=== PATIENT | female | born 1955 | race Caucasian/White ===

== ENCOUNTER → 2016-08-31 | Outpatient (CLI) | payer OTHER ==
[~2016-08-31] MED LIST: ACYCLOVIR 400400 MG PO; CELLCEPT 250 M250 MG PO; NAPROSYN500 MG PO; PREDNISONE 10 M10 MG PO
== END ==
LOC: RAD 15:56
DX: R07.81 Pleurodynia (principal)

== ENCOUNTER → 2016-09-12 | Outpatient (CLI) | payer OTHER | LOC: RAD 13:03 | DX: R92.2 Inconclusive mammogram (principal) ==

== ENCOUNTER 2017-04-08 01:41 | Emergency (ER) | payer OTHER ==
[~2017-04-08] VITALS: Ht 165.1 cm; Wt 79.4 kg
[~2017-04-08 01:41] MED LIST changes: +CELLCEPT500 MG PO; +CLONAZEPAM 0.50.5 M1 PO; +PREDNISONE 5 MG5 M1 PO; +URSODIOL250 MG PO
[2017-04-08 02:09] LABS: ABSOLUTE NEUTROPHILS 3.9 thou/uL (1.4-8.2); BASOPHILS 0.5 % (0.0-2.0); EOSINOPHILS 0.3 % (0.0-3.0); HEMATOCRIT 44.4 % (37.0-47.0); HEMOGLOBIN 14.7 gm/dL (12.0-15.0); LYMPHOCYTES 10.1 % (24.0-44.0); MCH 28.6 pg (26.0-34.0); MCHC 33.2 g/dL (28.0-37.0); MCV 86.3 fL (80.0-100.0); MONOCYTES 11.1 % (1.0-8.0); PLATELET COUNT 122 thou/uL (150-400); RBC 5.14 mil/uL (4.20-5.00); RDW 16.5 % (10.5-14.5)
[2017-04-08 02:11] LABS: CALCIUM 8.7 mg/dL (8.5-10.1); POTASSIUM 3.4 mmol/L (3.5-5.1)
[2017-04-08 02:17] LABS: ALBUMIN 3.6 g/dL (3.4-5.0); TOTAL BILIRUBIN 1.8 mg/dL (<0.1-1.0); TOTAL PROTEIN 7.4 g/dL (6.4-8.2)
[2017-04-08 04:47] LABS: URINE BILIRUBIN 1+ (Negative); URINE BLOOD 1+ (Negative); URINE CLARITY CLEAR; URINE COLOR YELLOW; URINE GLUCOSE-RANDOM* NEGATIVE (Negative); URINE KETONES 1+ (Negative); URINE NITRITE-REFLEX NEGATIVE (Negative); URINE PROTEIN (DIPSTICK) NEGATIVE (Negative)
[2017-04-08 04:48] LABS: URINE LEUKOCYTES-REFLEX 1+ (Negative)
[2017-04-08 04:53] LABS: ICTOTEST (BILI CONFIRMATORY) Positive (Negative)
[2017-04-08 05:08] LABS: CASTS None Seen /LPF (None Seen); MUCUS 0-3 Light strn/LPF (None Seen); SQUAMOUS None Seen /LPF (0-3); URINE RBC 3-10 Few /HPF (0-2)
[2017-04-08 05:09] LABS: BACTERIA-REFLEX 1-9 Few /HPF (None Seen); CRYSTALS None Seen /LPF (None Seen)
[2017-04-08] MEDS ORDERED: ZOFRAN ODT4 MG PO (05:16)
== END 2017-04-08 06:00 | disposition home or self-care (01) ==
LOC: ER 01:41
PROVIDERS: Emergency Medicine
DX: K52.9 Noninfective gastroenteritis and colitis, unspecified (principal); Z90.49 Acquired absence of other specified parts of digestive tract; Z88.1 Allergy status to other antibiotic agents

== ENCOUNTER 2017-07-13 12:53 | Emergency (ER) | payer OTHER ==
[~2017-07-13] VITALS: Ht 165.1 cm; Wt 79.8 kg
[~2017-07-13 12:53] MED LIST changes: +ZOFRAN ODT4 MG PO
[2017-07-13] MEDS ORDERED: HYDROCODONE-IB1 EAC3 PO (14:27)
[2017-07-13 14:30] VITALS: BP 138/64
== END 2017-07-13 14:32 | disposition home or self-care (01) ==
LOC: ER 12:53
DX: S86.912A Strain of unspecified muscle(s) and tendon(s) at lower leg level, left leg, initial encounter (principal); F32.9 Major depressive disorder, single episode, unspecified; M79.7 Fibromyalgia; M19.90 Unspecified osteoarthritis, unspecified site; Z90.49 Acquired absence of other specified parts of digestive tract; Z88.1 Allergy status to other antibiotic agents; X58.XXXA Exposure to other specified factors, initial encounter; Y93.89 Activity, other specified; Y92.89 Other specified places as the place of occurrence of the external cause; Y99.8 Other external cause status

== ENCOUNTER → 2017-12-30 | Outpatient (CLI) | payer OTHER ==
[~2017-12-30] MED LIST changes: +HYDROCODONE-IB1 EAC3 PO
--- NOTE | ~2017-12-30 | SLE ---
[facility] [place] [address] POLYSOMNOGRAPHY STUDY Name: ARNIE MAO Room #: REG [facility].#: [id number] Admission: 12/30/17 Attend Phys: Kirby Garner MD Discharge: Date of : 55 Report #: [id number] THIS REPORT FOR: //name// CC: Kirby Jose MD DATE OF SERVICE: 12/30/2017 SLEEP STUDY ATTENDING PHYSICIAN: Dr. Flakito Jose. The patient is a 62-year-old who weighs 170 pounds and 65 inches tall and has a BMI of 28.3. The patient's [place] score was 14 out of a maximum of 24. Review of medications also revealed use of benzodiazepines and narcotics. Sleep study was performed to rule out ERNST. This was a diagnostic study. During the night study, the patient spent 451 minutes in bed and slept for 290 minutes with a low sleep efficiency of 64%. Sleep latency was prolonged at 64 minutes with a REM latency of 292 minutes. Overall, sleep architecture showed normal stage 1 sleep, increased stage 2 sleep, significantly reduced N3 sleep and reduced REM sleep, which was 11.6% of the total sleep time and representing 33.5 minutes. During the night study, the patient had total of 6 apneas, 3 obstructive and 3 central and 10 hypopneas. The patient's apnea-hypopnea index for the entire night was only 3.3 per hour with a REM index of 16 per hour and a supine index of 5.3 per hour. EKG monitoring revealed an average heart rate of 60 beats per minute with a maximum of 79 beats per minute. No sustained arrhythmias were observed. No clinically significant PLMS observed. The PLM index was only 3.1 per hour. Nocturnal oximetry study revealed an average oxygen saturation of 95% with a lowest of 85%. Only 0.3 minutes were spent in oxygen saturation of less than 89%. Due to low AHI, the patient did not meet the split night criteria for CPAP initiation. IMPRESSION: 1. Overall, no clinically significant sleep disordered breathing. The patient's AHI for the entire night was 3.3 per hour. The patient did have mild REM related events with a REM AHI of 16 per hour. [facility] [address] [place] [address] POLYSOMNOGRAPHY STUDY Name: ARNIE MAO Room #: REG [facility].#: [id number] Admission: 12/30/17 Attend Phys: Kirby Garner MD Discharge: Date of : 55 Report #: [id number] 2. No clinically significant nocturnal hypoxia. 3. No clinically significant periodic limb movements during sleep. 4. Reduced sleep efficiency resulting from sleep onset and sleep maintenance insomnia. RECOMMENDATIONS: 1. The patient did not meet the split night criteria for CPAP initiation due to low AHI. 2. The patient's subjective hypersomnia could be the effect of medications. Patient is on chronic benzodiazepines and narcotics. 3. The patient also had a reduced sleep efficiency resulting from sleep onset and sleep maintenance insomnia. This can also contribute to the patient's symptoms. 3. Avoid CIGARETTE TIPPER depressants. 4. Weight loss is strongly advised. 5. Cautioned regarding driving until patient's subjective hypersomnia is resolved. <ELECTRONICALLY SIGNED> By: Kirby Garner MD 12/31/17 1854 [id number] 1730 Kirby Garner MD /nt
== END ==
LOC: SLEEPLAB 16:48
DX: G47.19 Other hypersomnia (principal); R53.82 Chronic fatigue, unspecified; G47.33 Obstructive sleep apnea (adult) (pediatric)

== ENCOUNTER 2018-03-12 19:03 | Emergency (ER) | payer OTHER ==
[~2018-03-12] VITALS: Ht 165.1 cm; Wt 79.4 kg
[2018-03-12] MEDS ORDERED: VALACYCLOVIR1000 MG (19:27)
[2018-03-12 20:31] LABS: ABSOLUTE NEUTROPHILS 5.4 thou/uL (1.4-8.2); BASOPHILS 0.7 % (0.0-2.0); EOSINOPHILS 0.4 % (0.0-3.0); HEMOGLOBIN 14.9 gm/dL (12.0-15.0); LYMPHOCYTES 5.7 % (24.0-44.0); MCV 87.9 fL (80.0-100.0); MONOCYTES 6.1 % (1.0-8.0); PLATELET COUNT 137 thou/uL (150-400); POLYS 87.1 % (36.0-66.0); RBC 5.13 mil/uL (4.20-5.00); RDW 16.4 % (10.5-14.5); WBC 6.2 thou/uL (4.0-11.0)
[2018-03-12 20:39] LABS: CALCIUM 8.7 mg/dL (8.5-10.1); CREATININE 0.8 mg/dL (0.6-1.0); POTASSIUM 3.7 mmol/L (3.5-5.1)
[2018-03-12 20:46] LABS: ALBUMIN 3.8 g/dL (3.4-5.0); TOTAL BILIRUBIN 1.3 mg/dL (<0.1-1.0); TOTAL PROTEIN 8.1 g/dL (6.4-8.2)
[2018-03-12] MEDS ORDERED: ZOFRAN 4 MG ORAL4 MG PO (21:50)
[2018-03-12] MEDS ORDERED: TAMIFLU75 MG PO (21:50)
[2018-03-12 22:14] VITALS: BP 122/54
== END 2018-03-12 22:15 | disposition home or self-care (01) ==
LOC: ER 19:03
PROVIDERS: Emergency Medicine
DX: J11.1 Influenza due to unidentified influenza virus with other respiratory manifestations (principal); K75.4 Autoimmune hepatitis; F32.9 Major depressive disorder, single episode, unspecified; M79.7 Fibromyalgia; M19.90 Unspecified osteoarthritis, unspecified site; R11.2 Nausea with vomiting, unspecified; Z90.49 Acquired absence of other specified parts of digestive tract; Z88.1 Allergy status to other antibiotic agents; Z88.8 Allergy status to other drugs, medicaments and biological substances

== ENCOUNTER → 2018-06-13 | Outpatient (CLI) | payer OTHER ==
[~2018-06-13] MED LIST changes: +TAMIFLU75 MG PO; +VALACYCLOVIR1000 MG; +ZOFRAN 4 MG ORAL4 MG PO
== END ==
LOC: RAD 15:41
DX: M48.07 Spinal stenosis, lumbosacral region (principal); I70.0 Atherosclerosis of aorta; G89.29 Other chronic pain

== ENCOUNTER → 2018-06-19 | Outpatient (CLI) | payer OTHER | LOC: MRI 10:47 | DX: M48.56XA Collapsed vertebra, not elsewhere classified, lumbar region, initial encounter for fracture (principal); M51.16 Intervertebral disc disorders with radiculopathy, lumbar region; M48.061 Spinal stenosis, lumbar region without neurogenic claudication; R60.0 Localized edema ==

== ENCOUNTER → 2019-05-07 | Outpatient (CLI) | payer OTHER | LOC: RAD 11:26 | DX: Z12.31 Encounter for screening mammogram for malignant neoplasm of breast (principal) ==

== ENCOUNTER → 2019-05-29 | Outpatient (CLI) | payer OTHER | LOC: CAT 09:32 | DX: N20.0 Calculus of kidney (principal); M48.56XA Collapsed vertebra, not elsewhere classified, lumbar region, initial encounter for fracture; R16.1 Splenomegaly, not elsewhere classified ==

== ENCOUNTER 2019-12-11 16:05 | Emergency (ER) | payer OTHER ==
[~2019-12-11] VITALS: Ht 165.1 cm; Wt 70.3 kg
[2019-12-11 18:25] VITALS: BP 110/53
== END 2019-12-11 18:25 | disposition home or self-care (01) ==
LOC: ER 16:05
DX: S51.812A Laceration without foreign body of left forearm, initial encounter (principal); S51.811A Laceration without foreign body of right forearm, initial encounter; F32.9 Major depressive disorder, single episode, unspecified; M79.7 Fibromyalgia; M19.90 Unspecified osteoarthritis, unspecified site; Z90.49 Acquired absence of other specified parts of digestive tract; Z79.899 Other long term (current) drug therapy; Z88.1 Allergy status to other antibiotic agents; W23.0XXA Caught, crushed, jammed, or pinched between moving objects, initial encounter; Y93.89 Activity, other specified; Y92.098 Other place in other non-institutional residence as the place of occurrence of the external cause; Y99.8 Other external cause status

== ENCOUNTER → 2020-11-15 | Outpatient (CLI) | payer OTHER | LOC: RAD 14:50 | PROVIDERS: ATTEND Family Medicine | DX: M19.012 Primary osteoarthritis, left shoulder (principal); M50.322 Other cervical disc degeneration at C5-C6 level; W19.XXXS Unspecified fall, sequela; M48.02 Spinal stenosis, cervical region ==

== ENCOUNTER → 2020-12-02 | Outpatient (CLI) | payer OTHER ==
[~2020-12-02] MED LIST changes: +B COMPLEX1 EACH PO; +BONE RESTORE PO; +DULOXETINE HCL30 MG PO; +MAGNESIUM COMP300 MG PO; +MULTI VITAMIN1 EACH PO; +NYSTATIN100000 UNI SW&SWALLOW; +OMEPRAZOLE40 MG PO; +PROLIA60 MG/1 ML SUBQ; +TRAMADOL 50 MG50 MG PO; +VALACYCLOVIR1000 MG PO; +VITAMIN B122500 MCG PO; +VITAMIN C1000 MG PO; +VITAMIN C500 M1 PO; +VITAMIN D3125 MCG PO; +VITAMIN E400 UNI2 PO; +ZINC PO
[2020-12-02 14:03] LABS: ALBUMIN 3.4 g/dL (3.4-5.0); CALCIUM 8.8 mg/dL (8.5-10.1); CREATININE 0.8 mg/dL (0.6-1.0); POTASSIUM 3.8 mmol/L (3.5-5.1)
[2020-12-02 14:10] LABS: INR 1.04; PROTIME 11.3 Seconds (10.5-12.1)
[2020-12-02 14:16] LABS: HEMATOCRIT 43.3 % (37.0-47.0); HEMOGLOBIN 14.6 gm/dL (12.0-15.0); MCH 32.9 pg (26.0-34.0); MCHC 33.6 g/dL (28.0-37.0); RBC 4.42 mil/uL (4.20-5.00); RDW 14.7 % (10.5-14.5); WBC 5.7 thou/uL (4.0-11.0)
[2020-12-02 14:40] LABS: URINE BILIRUBIN NEGATIVE (Negative); URINE BLOOD NEGATIVE (Negative); URINE CLARITY CLEAR; URINE COLOR YELLOW; URINE GLUCOSE-RANDOM* NEGATIVE (Negative); URINE KETONES TRACE (Negative); URINE LEUKOCYTES-REFLEX NEGATIVE (Negative); URINE NITRITE-REFLEX NEGATIVE (Negative); URINE PROTEIN (DIPSTICK) NEGATIVE (Negative); URINE SPECIFIC GRAVITY 1.025 (1.005-1.035)
== END ==
LOC: PAC 09-17 09:59
PROVIDERS: ATTEND Orthopaedic Surgery
DX: Z01.812 Encounter for preprocedural laboratory examination (principal); M16.12 Unilateral primary osteoarthritis, left hip

== ENCOUNTER → 2020-12-14 | Outpatient (CLI) | payer OTHER ==
[~2020-12-14] MED LIST changes: +LOPRESSOR50 MG PO
== END ==
LOC: LAB 06:14
PROVIDERS: ATTEND Student in an Organized Health Care Education/Training Program
DX: Z01.812 Encounter for preprocedural laboratory examination (principal); Z20.822 Contact with and (suspected) exposure to COVID-19

== ENCOUNTER 2020-12-16 06:25 | Inpatient (IN) | payer OTHER ==
[~2020-12-16] VITALS: Ht 160 cm; Wt 73.9 kg
[2020-12-16 06:45] VITALS: BP 111/55
--- NOTE | 2020-12-16 16:05 | NUR ---
PATIENT ARRIVED TO 4S VIA BED. VERY SLEEPY BUT AROUSES TO NAME. A/OX 4. ROOM AIR. BEDBOUND. RIGHT FOREARM IV WITH D5 1/2 NS INFUSING @ 100 MLS/HR. LEFT HIP SPIKE DRAIN. WRIGHT IN PLACE FOR RETENTION, URINE YELLOW. BP 87/47. TAY PACHECO NOTIFIED OF LOW BP AND NURSE TOLD TO CONTINUE TO RUN FLUIDS. ICE PACK TO LEFT HIP. VERY SLEEPY. CAME TO VISIT. NO PAIN AT THIS TIME.
[2020-12-16 20:06] VITALS: BP 81/41
[2020-12-17 00:25] VITALS: BP 100/41
--- NOTE | 2020-12-17 01:13 | NUR ---
PT WAS OBSERVED LAYING ON HER BED WITH HER EYES CLOSED AT SHIFT CHANGE.PT WAS EASILY AROUSABLE.BP AT SHIFT CAHNGE WAS LOW.PER REPORT,PA FOR THE PHYSICIAN AWARE.REAPEAT BP AT [place] TRENDING UP .WRIGHT CATH TO DD WITH LIGHT YELLOW URINE NOTED IN THE BAG.ABDUCTOR PILLOW IN PLACE.PT EDUCATED TO USE THE INCENTIVE SPIROMETER WHILE AWAKE.DRSG TO HER L HIP INTACT WITH ICE BAG IN PLACE.NICOLETTE AND SCD IN PLACE.CALL LIGHT WITHIN REACH.
[2020-12-17 04:57] VITALS: BP 97/44
[2020-12-17 07:14] VITALS: BP 89/44
--- NOTE | 2020-12-17 09:57 | NUR ---
A/O X 4. ROOM AIR, STAND BY ASSIST WITH WALKER. RIGHT FOREARM IV WITH D5 1/2 NS INFUSING @ 100 MLS/HR. RIGHT HIP SPIKE DRESSING- DRY, CLEAN AND INTACT. WRIGHT IN PLACE, URINE YELLOW, NO SEDIMENT NOTED. NURSE WAS GOIMG TO TAKE TAPE OFF PATIENTS RIGHT FOREARM, NURSE STARTED TAKEN OFF SLOWLY THEN PATIENT SAID "I'LL DO IT" AND THEN RIPPED THE TAPE OFF AND CAUSED A SKIN TEAR. NURSE APPILED GAUZE, PRESSURE AND DRESSING. PATIENT WORKED WITH PT. AT BEDSIDE. PAIN 6/10 RIGHT HIP, OXYCODONE GIVEN PRN.
--- NOTE | 2020-12-17 13:11 | NUR ---
INITIAL ASSESSMENT: Received consult. CAITLYN reviewed chart and spoke with nursing and ortho PA. Pt was admitted from home. POD #1 left RAGHAV. PT/OT have evaluated pt. Physical therapy to work with pt again this afternoon. CAITLYN met with pt and spouse at bedside. Introduced role of SW. Pt is alert/orientated x 4. Pt and spouse live in an apt. No stairs to navigate. Prior to admission, pt was independent with ADLs. No use of DME. No hx of HH services or post-acute placement in the past. Pt states she is familiar with [facility], as her mother was on [facility] for a while. SW discussed post-acute options: placement v. home with HH. Pt states that she originally thought she would need to go to a SNF/rehab. However, after working with therapy this morning, she is hopeful that she will be able to go home with HH services. Pt will need a walker. CAITLYN provided pt with HH list. Pt to discuss with her friend, who works for a HH agency. Pt and spouse state that they would like to stay through the weekend. CAITLYN explained that HH will be prepped for the weekend. Pt is able to discharge home when medically stable. SW to follow up with pt and spouse later this afternoon to discuss discharge plan.
[2020-12-17 15:50] VITALS: BP 89/44
[2020-12-17 19:54] VITALS: BP 104/43
--- NOTE | 2020-12-18 04:57 | NUR ---
ASSUMED CARE OF PT AT 1900. BEDSIDE REPORT RECEIVED. KESHAV ASSESSMENT COMPLETE. MEDS GIVEN ORDERED. SPIKE DRSG CDI. WRIGHT CARE COMPLETE AND BAG BELOW LEVEL OF BLADDER DRAINING JHOAN URINE. ADMINISTERED PRN AMBIEN D/T BEING ABLE TO SLEEP. REPROISITED FOR COMFORT. ALL NEEDS MET, CALL LIGHT INREACH.
[2020-12-18 08:15] VITALS: BP 113/49
--- NOTE | 2020-12-18 11:53 | NUR ---
ASSUMED PT CARE THIS AM. PT IS ALERT & ORIENTED X4. PT HAS IV SITE ON RFA SALINE LOCKED. PT IS ON ROOM AIR. PT HAS WRIGHT CATH IN PLACE. PT RATED PAIN 8/10 ON L HIP AND GIVEN PAIN MEDICATION PER PT REQUEST. PT WAS WORKING WITH PHYSICAL THERAPY THIS AM. WILL WORK AGAIN THIS AFTERNOON. PT TOLERATED DIET AND MEDICATION WELL. WILL CONTINUE TO MONITOR PT. FOLLOW POC.
--- NOTE | 2020-12-21 09:39 | O ---
[facility] [place] [address] OPERATIVE REPORT Name: ARNIE MAO Room #: 439-P [facility] M.R.#: [id number] Admission: 12/16/20 Attend Phys: Fransisco Dee MD Discharge: 12/18/20 Date of : 55 Report #: [id number] THIS REPORT FOR: cc: Vicenta Whitlock MD, Nora P. MD Abraham,Fransisco Min MD ~ DATE OF SERVICE: 12/16/2020 PREOPERATIVE DIAGNOSIS: Left hip osteoarthritis. POSTOPERATIVE DIAGNOSIS: Left hip osteoarthritis. PROCEDURE: Left total hip arthroplasty. SURGEON: Fransisco Dee MD. GRADES 7 AND 8 TEACHER: Martha Donis PA-C. INDICATION FOR GRADES 7 AND 8 TEACHER: Throughout the case, extensive retraction, manipulation of the hip including dislocation and reduction was required. This was afforded to me by my emergency veterinary assistant. ANESTHESIA: LMA. IMPLANTS: [employer] size 12 Synergy high offset cemented stem, a size 52 R3 acetabular cup with one acetabular screw and a size 36, -3 Oxinium head. ESTIMATED BLOOD LOSS: 300 mL COMPLICATIONS: None. SPECIMENS: None. CONDITION UPON LEAVING THE OR: Stable. INDICATIONS FOR PROCEDURE: The patient is a 65-year-old female with severe left hip osteoarthritis. She had failed conservative measures for this and after discussion with her, she elected for left total hip arthroplasty. DESCRIPTION OF PROCEDURE: Risks, benefits, alternatives, complications were discussed in detail with the patient including but not limited to risk of anesthesia, risk of damage to nerves, arteries, blood vessels, risk for infection, bleeding, risk for leg length discrepancy, instability and need for reoperation. Informed consent was obtained from the patient. The left hip was appropriately marked in the preoperative holding area. IV Ancef was given for preoperative antibiotics. She was brought to the operating room and placed in [address] [address] OPERATIVE REPORT Name: ARNIE MAO Room #: 439-P [facility] M.R.#: [id number] Admission: 12/16/20 Attend Phys: Fransisco Dee MD Discharge: 12/18/20 Date of : 55 Report #: [id number] supine position on the operating room table. LMA anesthesia was induced without complications. She was then placed in the right lateral decubitus position with the left hip uppermost. Left hip and lower extremity were prepped and draped in normal sterile fashion. Timeout was performed properly identifying the patient and procedure as well as the instrumentation and implants. All in the operating room in agreement. Standard posterior approach to the left hip was made with 10 blade through the skin. Dissection was taken down to the fascia with Bovie cautery and Nieto elevator was used to clean off the fascia. Fresh 10 blade was used to make a fascial incision. This was taken proximally and distally with curved Crump scissor. Charnley retractor was placed. Trochanteric bursa was taken down with Bovie cautery. Piriformis tendon was identified, tagged and taken down with Bovie. Short external rotators were also taken down with Bovie cautery. Capsulotomy was made and capsule ends were tagged for later repair. Hip was dislocated and there was extensive osteoarthritic change of the femoral head. Femoral neck cut was made 1 cm proximal to the lesser trochanter based on preoperative templating and the femoral head was removed. Deep acetabular retractors were placed. Labrum was removed sharply. Pulvinar was removed with Bovie cautery. Acetabulum was then sequentially reamed up to a size 52, at which point there was excellent bleeding cancellous bone. A size 51 trial cup was placed, found to have a good fit. Final size 52 R3 acetabular cup was placed and seated. One acetabular screw was placed for backup fixation and a polyethylene liner for a 36 head was placed. Attention was turned to the femur. This was reamed and broached up to a size 12, at which point the size 12 broach was stable and was trialed with a high offset neck and a 36 +0 head. Hip was reduced, taken through range of motion, found to be stable, found to have equal leg length. Hip was dislocated. The broach was removed and a final size 12 high offset cemented Synergy stem was placed. After the cement cured, this was trialed with a 36 +0 head and then a 36 -3 neck length head. The best stability and leg length equality. Hip was dislocated one last time and a final size 36 -3 Oxinium head was placed. Hip was reduced, taken through range of motion, found to be stable, found to have equal leg lengths. Wound was thoroughly irrigated with normal saline. Periarticular injection consisting of morphine, ropivacaine, epinephrine, Toradol was placed around the hip joint capsule. A gram of vancomycin was placed deep in the joint. The capsule and piriformis were repaired with 0 FiberWire. Fascia was closed with 0 Vicryl. Skin was closed with 2-0 Vicryl, skin staple and a SPIKE dressing was applied. The patient tolerated this procedure well and went to recovery room under care of anesthesia postoperatively. <ELECTRONICALLY SIGNED> By: Fransisco Dee MD 12/21/20 0939 1053 1115 Fransisco Dee MD /nt
== END 2020-12-18 15:37 | disposition home health service (06) | DRG 470 ==
LOC: OR 06:25 → TBA 06:26 → OR 10:10 → 4S 13:14 → OR 13:14 → 4S 12-18 15:37
PROVIDERS: ADMIT Orthopaedic Surgery; ATTEND Orthopaedic Surgery
PROC: 0SRB069 Replacement of Left Hip Joint with Oxidized Zirconium on Polyethylene Synthetic Substitute, Cemented, Open Approach (ICD-10-PCS; principal; 2020-12-16)
DX: M16.12 Unilateral primary osteoarthritis, left hip (principal); Z88.8 Allergy status to other drugs, medicaments and biological substances; Z20.822 Contact with and (suspected) exposure to COVID-19; Z79.899 Other long term (current) drug therapy
CPT/HCPCS: 10102; 50010; 50101; 50382; 50414; 51057; 51130; 51225; 51226; 51412; 53000; 53078; 53368; 56460; 56524; 56528; 56530; 57095; 57103; 62110; 62900; 70005

== ENCOUNTER 2020-12-26 12:12 | Emergency (ER) | payer OTHER ==
[~2020-12-26] VITALS: Ht 160 cm; Wt 68.0 kg
[2020-12-26 13:03] LABS: URINE BILIRUBIN NEGATIVE (Negative); URINE BLOOD NEGATIVE (Negative); URINE CLARITY CLEAR; URINE COLOR YELLOW; URINE GLUCOSE-RANDOM* NEGATIVE (Negative); URINE KETONES TRACE (Negative); URINE LEUKOCYTES-REFLEX NEGATIVE (Negative); URINE NITRITE-REFLEX NEGATIVE (Negative); URINE PROTEIN (DIPSTICK) NEGATIVE (Negative); URINE SPECIFIC GRAVITY 1.015 (1.005-1.035); URINE UROBILINOGEN 0.2 E.U./dl (0.2-1.0)
[2020-12-26 13:07] LABS: ABSOLUTE NEUTROPHILS 2.7 thou/uL (1.4-8.2); BASOPHILS 0.7 % (0.0-2.0); EOSINOPHILS 1.5 % (0.0-3.0); HEMATOCRIT 32.1 % (37.0-47.0); HEMOGLOBIN 10.8 gm/dL (12.0-15.0); LYMPHOCYTES 13.8 % (24.0-44.0); MCHC 33.7 g/dL (28.0-37.0); MCV 103.7 fL (80.0-100.0); MONOCYTES 13.3 % (1.0-8.0); PLATELET COUNT 238 thou/uL (150-400); POLYS 70.7 % (36.0-66.0); RBC 3.09 mil/uL (4.20-5.00); RDW 18.2 % (10.5-14.5); WBC 3.8 thou/uL (4.0-11.0)
[2020-12-26 13:19] LABS: CALCIUM 8.7 mg/dL (8.5-10.1); CREATININE 0.5 mg/dL (0.6-1.0); POTASSIUM 3.2 mmol/L (3.5-5.1)
--- NOTE | 2020-12-26 13:34 | EKG ---
[place] [address] [place] [address] ELECTROCARDIOGRAM REPORT Name: ARNIE MAO Room #: REG [facility]#: [id number] Admission: 12/26/20 Attend Phys: Discharge: Date of : 55 Report #: [id number] [facility] ED Test Date: 2020-12-26 Test Time: 13:00:25 Pat Name: ARNIE MAO Department: Room: Gender: F Personal Care Worker: : 1955 Requested By: Shannen Henley Order Number: [id number] MD: Paresh Hardin Measurements Intervals Reading Rate: 69 P: 53 HI: 166 QRS: 40 QRSD: 95 T: 44 QT: 431 QTc: 462 Interpretive Statements Sinus rhythm No significant abnormality No previous ECG available for comparison Electronically Signed On 12-26-2020 13:34:10 CDT by Paresh Hardin [email or web address] <ELECTRONICALLY SIGNED> By: Paresh Hardin MD, [facility] 12/26/20 1334 1300 1300 Paresh Hardin MD, FACC /EPI
[2020-12-26 13:51] LABS: TOTAL BILIRUBIN 2.2 mg/dL (0.2-1.0); TOTAL PROTEIN 6.3 g/dL (6.4-8.2)
[2020-12-26 14:02] LABS: APTT 28.2 Seconds (24.5-32.8); INR 1.09; PROTIME 11.8 Seconds (10.5-12.1)
[2020-12-26 15:01] LABS: ANISOCYTOSIS 1+; MACROCYTES 1+
[2020-12-26] MEDS ORDERED: OXYCODONE HCL10 MG PO (17:25)
[2020-12-26 17:28] VITALS: BP 129/58
== END 2020-12-26 17:28 | disposition home or self-care (01) ==
LOC: ER 12:12
PROVIDERS: Nurse Practitioner Family
DX: M79.89 Other specified soft tissue disorders (principal); G89.28 Other chronic postprocedural pain; Q89.9 Congenital malformation, unspecified; M19.90 Unspecified osteoarthritis, unspecified site; Z79.899 Other long term (current) drug therapy; Z88.6 Allergy status to analgesic agent; Z88.1 Allergy status to other antibiotic agents